=== PATIENT | male | born 1990 | race Caucasian/White ===

== ENCOUNTER 2018-12-28 22:03 | Emergency (ER) | payer SELFPAY ==
[~2018-12-28] VITALS: Ht 170.2 cm; Wt 77.1 kg
[2018-12-28 22:36] VITALS: Ht 170.2 cm; Wt 77.1 kg
[2018-12-29 00:14] VITALS: BP 167/102
== END 2018-12-29 00:14 | disposition home or self-care (01) ==
LOC: ED 22:03
DX: M25.512 Pain in left shoulder (principal); R07.89 Other chest pain; I10 Essential (primary) hypertension; V49.09XA Driver injured in collision with other motor vehicles in nontraffic accident, initial encounter; W22.10XA Striking against or struck by unspecified automobile airbag, initial encounter; Y93.I9 Activity, other involving external motion; Y92.413 State road as the place of occurrence of the external cause; Y99.8 Other external cause status